=== PATIENT | female | born 1975 | race Caucasian/White ===

== ENCOUNTER 2017-03-03 23:03 | Emergency (ER) | payer OTHER ==
[~2017-03-03] VITALS: Ht 157.5 cm; Wt 81.0 kg
[2017-03-03] MEDS ORDERED: CLON2TAB4 PO (23:19)
[2017-03-03] MEDS ORDERED: HYDR-3114 PO (23:21)
[2017-03-04] MEDS ORDERED: LORazepam 2 MG/ML VIAL IM ONE (03:00)
[2017-03-04] MEDS ORDERED: HALOPERIDOL LACTATE 5 MG/ML VIAL IM ONE (03:00)
[2017-03-04] MEDS ORDERED: DiphenhydrAMINE HCL 50 MG/ML VIAL IM ONE (03:00)
[2017-03-04] MEDS ORDERED: HydrOXYzine HCL 50 MG TABLET PO ONE (03:15)
[2017-03-04] MEDS ORDERED: ClonazePAM 1 MG TABLET PO ONE (03:15)
[2017-03-04 18:07] VITALS: BP 95/51
== END 2017-03-04 18:30 | disposition short-term general hospital (02) ==
LOC: EMS 23:04
DX: S00.83XA Contusion of other part of head, initial encounter (principal); F29 Unspecified psychosis not due to a substance or known physiological condition; X58.XXXA Exposure to other specified factors, initial encounter; Y93.89 Activity, other specified; Y92.9 Unspecified place or not applicable; Y99.9 Unspecified external cause status
CPT/HCPCS: 70450; 70480; 99285; J1200; J1630; J2060